=== PATIENT | female | born 1985 | race Caucasian/White ===

== ENCOUNTER 2018-05-01 09:54 | Emergency (ER) | payer OTHER ==
[~2018-05-01] VITALS: Ht 167.6 cm; Wt 52.2 kg
[~2018-05-01 09:54] MED LIST: ACETAMINOPHEN-1 EAC1 PO; BUTALB-APAP-CA1 EACH PO; CEPHALEXIN 500500 M3 PO; CIPROFLOXACIN500 M1 PO; CLEOCIN HCL150 MG PO; CLEOCIN HCL300 MG PO; CYCLOBENZAPRINE10 MG PO; FIORICET 50-321 EACH PO; IBUPROFEN 800800 M1 PO; NOHOMEMEDICATIONS; PROVERA5 MG PO; TRINATE TABLET1 TAB PO; ZITHROMAX TRI-500 MG PO; ZOFRAN4 MG PO
[2018-05-01 09:59] VITALS: BP 114/56
[2018-05-01] MEDS ORDERED: PENICILLIN VK500 MG PO (10:17)
== END 2018-05-01 10:23 | disposition home or self-care (01) ==
LOC: M.ERS 09:54
DX: K08.89 Other specified disorders of teeth and supporting structures (principal); F41.9 Anxiety disorder, unspecified; F17.210 Nicotine dependence, cigarettes, uncomplicated; Z88.0 Allergy status to penicillin; Z88.8 Allergy status to other drugs, medicaments and biological substances

== ENCOUNTER 2018-11-29 12:26 | Emergency (ER) | payer OTHER ==
[~2018-11-29] VITALS: Ht 170.2 cm; Wt 52.2 kg
[~2018-11-29 12:26] MED LIST changes: +PENICILLIN VK500 MG PO
[2018-11-29] MEDS ORDERED: CLONAZEPAM 0.50.5 M1 PO (12:59)
[2018-11-29] MEDS ORDERED: PENICILLIN VK500 MG PO (13:36)
[2018-11-29 13:46] VITALS: BP 121/70
== END 2018-11-29 13:47 | disposition home or self-care (01) ==
LOC: M.ERS 12:26
DX: K04.7 Periapical abscess without sinus (principal); F41.9 Anxiety disorder, unspecified; F17.210 Nicotine dependence, cigarettes, uncomplicated; Z88.8 Allergy status to other drugs, medicaments and biological substances

== ENCOUNTER 2019-06-08 13:16 | Emergency (ER) | payer OTHER ==
[~2019-06-08] VITALS: Ht 167.6 cm; Wt 49.9 kg
[~2019-06-08 13:16] MED LIST changes: +CLONAZEPAM 0.50.5 M1 PO
[2019-06-08 13:45] LABS: URINE BLOOD NEGATIVE (Negative); URINE CLARITY CLEAR; URINE COLOR YELLOW; URINE GLUCOSE-RANDOM NEGATIVE (Negative); URINE LEUKOCYTES-REFLEX NEGATIVE (Negative); URINE NITRITE-REFLEX NEGATIVE (Negative); URINE PROTEIN 2+ (Negative); URINE UROBILINOGEN 0.2 E.U./dl (0.2-1.0)
[2019-06-08 13:47] LABS: ICTOTEST (BILI CONFIRMATORY) Negative (Negative); URINE BILIRUBIN 1+ (Negative); URINE KETONES 3+ (Negative)
[2019-06-08 13:50] LABS: SQUAMOUS >10 Many /LPF (0-3)
[2019-06-08 13:51] LABS: HEMATOCRIT 40.1 % (37.0-47.0); HEMOGLOBIN 13.7 gm/dL (12.0-15.0); MCH 30.6 pg (26.0-34.0); MCHC 34.2 g/dL (28.0-37.0); MCV 89.6 fL (80.0-100.0); MPV 8.2 fl. (7.2-11.1); NUCLEATED RBCS 0 /100WBC; PLATELET COUNT* 137 thou/uL (150-400); RBC 4.48 mil/uL (4.20-5.00); RDW-CV 13.5 % (10.5-14.5); WBC 10.1 thou/uL (4.0-11.0)
[2019-06-08 13:52] LABS: AMP/METHAMP Negative (Negative); BACTERIA-REFLEX None Seen /HPF (None Seen); BARBITURATES Negative (Negative); BENZODIAZEPINES Negative (Negative); COCAINE Negative (Negative); METHADONE Negative (Negative); MUCUS >6 Heavy strn/LPF (None Seen); OPIATES Negative (Negative); PCP Negative (Negative); THC POSITIVE (Negative); URINE RBC None Seen /HPF (0-2); URINE WBC-REFLEX 0-5 Rare /HPF (0-5)
[2019-06-08 13:53] LABS: CASTS None Seen /LPF (None Seen); CRYSTALS None Seen /LPF (None Seen)
[2019-06-08 13:59] LABS: CREATININE 0.9 mg/dL (0.6-1.3); POTASSIUM 3.3 mmol/L (3.5-5.1)
[2019-06-08 14:03] LABS: ALBUMIN 3.6 g/dL (3.4-5.0); TOTAL PROTEIN 7.2 g/dL (6.4-8.2)
[2019-06-08 14:14] LABS: ABSOLUTE LYMPHOCYTES 0.3 thou/uL (0.8-5.3); ABSOLUTE MONOCYTES 0.4 thou/uL (0.0-1.2); ABSOLUTE NEUTROPHILS 9.4 thou/uL (1.6-8.1)
[2019-06-08 14:15] LABS: CLUMPED PLTS RARE; PLATELET ESTIMATE DECREASED
[2019-06-08 14:16] LABS: LARGE PLATELETS OCCASIONAL
[2019-06-08] MEDS ORDERED: PROMS25 WY RECTAL (15:55)
[2019-06-08] MEDS ORDERED: NAPROSYN500 MG PO (15:55)
[2019-06-08] MEDS ORDERED: PHENERGAN 25 MG25 M1 PO (15:55)
[2019-06-08] MEDS ORDERED: AUGMENTIN 875-1 EACH PO (15:55)
[2019-06-08 16:13] VITALS: BP 108/66
== END 2019-06-08 17:00 | disposition home or self-care (01) ==
LOC: M.ERS 13:16
PROVIDERS: Nurse Practitioner Family
DX: K52.9 Noninfective gastroenteritis and colitis, unspecified (principal); K31.89 Other diseases of stomach and duodenum; R11.2 Nausea with vomiting, unspecified; K04.7 Periapical abscess without sinus; F17.210 Nicotine dependence, cigarettes, uncomplicated; F12.10 Cannabis abuse, uncomplicated; J02.9 Acute pharyngitis, unspecified; D18.03 Hemangioma of intra-abdominal structures; F41.9 Anxiety disorder, unspecified; F32.9 Major depressive disorder, single episode, unspecified; Z88.8 Allergy status to other drugs, medicaments and biological substances

== ENCOUNTER 2019-06-08 23:45 | Inpatient (IN) | payer OTHER ==
[~2019-06-08] VITALS: Ht 167.6 cm; Wt 55.2 kg
[~2019-06-08 23:45] MED LIST changes: +AUGMENTIN 875-1 EACH PO; +NAPROSYN500 MG PO; +PHENERGAN 25 MG25 M1 PO; +PROMS25 WY RECTAL
[2019-06-08 23:53] VITALS: BP 115/65
[2019-06-09 00:25] LABS: HEMATOCRIT 35.4 % (37.0-47.0); HEMOGLOBIN 12.3 gm/dL (12.0-15.0); MCH 31.1 pg (26.0-34.0); MCHC 34.8 g/dL (28.0-37.0); MCV 89.5 fL (80.0-100.0); MPV 8.5 fl. (7.2-11.1); NUCLEATED RBCS 0 /100WBC; PLATELET COUNT* 111 thou/uL (150-400); RBC 3.96 mil/uL (4.20-5.00); RDW-CV 13.4 % (10.5-14.5)
[2019-06-09 00:32] LABS: CALCIUM 8.4 mg/dL (8.5-10.1)
[2019-06-09 00:37] LABS: ALBUMIN 3.1 g/dL (3.4-5.0); POTASSIUM 2.9 mmol/L (3.5-5.1); TOTAL BILIRUBIN 0.8 mg/dL (<0.1-1.0); TOTAL PROTEIN 6.2 g/dL (6.4-8.2)
[2019-06-09 00:58] LABS: ABSOLUTE BASOPHILS 0.1 thou/uL (0.0-0.2); ABSOLUTE MONOCYTES 0.2 thou/uL (0.0-1.2); ABSOLUTE NEUTROPHILS 6.7 thou/uL (1.6-8.1)
[2019-06-09 00:59] LABS: PLATELET ESTIMATE DECREASED
[2019-06-09 05:37] LABS: MAGNESIUM 2.6 mg/dL (1.8-2.4); POTASSIUM 4.4 mmol/L (3.5-5.1)
[2019-06-09 06:20] VITALS: BP 85/46
[2019-06-09 08:23] LABS: ABSOLUTE LYMPHOCYTES 0.5 thou/uL (0.8-5.3); ABSOLUTE MONOCYTES 0.7 thou/uL (0.0-1.2); ABSOLUTE NEUTROPHILS 6.1 thou/uL (1.6-8.1); BASOPHILS 0.1 %; EOSINOPHILS 0.1 %; HEMATOCRIT 29.3 % (37.0-47.0); MCH 31.3 pg (26.0-34.0); MCHC 34.4 g/dL (28.0-37.0); MONOCYTES 9.6 %; MPV 8.2 fl. (7.2-11.1); NUCLEATED RBCS 0 /100WBC; PLATELET COUNT* 96 thou/uL (150-400); POLYS 83.2 %; RBC 3.22 mil/uL (4.20-5.00); RDW-CV 13.3 % (10.5-14.5); WBC 7.3 thou/uL (4.0-11.0)
[2019-06-09 08:28] LABS: HEMOGLOBIN 10.1 gm/dL (12.0-15.0)
[2019-06-09 08:39] LABS: APTT 30.1 Seconds (25.0-31.3); INR 1.3; PROTIME 13.1 Seconds (9.20-11.50)
[2019-06-09 10:00] VITALS: BP 85/52
[2019-06-09 12:09] LABS: URINE BILIRUBIN NEGATIVE (Negative); URINE BLOOD NEGATIVE (Negative); URINE CLARITY CLEAR; URINE COLOR YELLOW; URINE GLUCOSE-RANDOM NEGATIVE (Negative); URINE KETONES NEGATIVE (Negative); URINE LEUKOCYTES-REFLEX NEGATIVE (Negative); URINE NITRITE-REFLEX NEGATIVE (Negative); URINE PROTEIN NEGATIVE (Negative); URINE UROBILINOGEN 0.2 E.U./dl (0.2-1.0)
[2019-06-09 14:00] VITALS: BP 105/67
[2019-06-09 18:11] VITALS: BP 98/64
[2019-06-09 20:00] VITALS: BP 118/74
[2019-06-09 21:20] VITALS: BP 102/68
[2019-06-10] VITALS: BP 104/64
[2019-06-10 04:00] VITALS: BP 95/54
[2019-06-10 08:00] VITALS: BP 97/65
[2019-06-10 12:00] VITALS: BP 111/61
[2019-06-10 20:00] VITALS: BP 110/61
[2019-06-11 05:00] LABS: HEMATOCRIT 29.7 % (37.0-47.0); HEMOGLOBIN 9.9 gm/dL (12.0-15.0); MCH 30.2 pg (26.0-34.0); MCHC 33.2 g/dL (28.0-37.0); MCV 91.1 fL (80.0-100.0); MPV 9.4 fl. (7.2-11.1); RBC 3.26 mil/uL (4.20-5.00); RDW-CV 13.9 % (10.5-14.5); WBC 3.6 thou/uL (4.0-11.0)
[2019-06-11 05:06] LABS: CALCIUM 8.2 mg/dL (8.5-10.1); CREATININE 0.8 mg/dL (0.6-1.3); MAGNESIUM 1.7 mg/dL (1.8-2.4); POTASSIUM 3.4 mmol/L (3.5-5.1)
[2019-06-11 08:00] VITALS: BP 106/75
[2019-06-11] MEDS ORDERED: CIPRO500 MG PO (08:34)
[2019-06-11] MEDS ORDERED: METRONIDAZOLE500 M4 PO (08:34)
[2019-06-11] MEDS ORDERED: LOPERAMIDE 2 MG2 M1 PO (08:34)
[2019-06-11 10:46] VITALS: BP 106/75
== END 2019-06-11 13:16 | disposition home or self-care (01) | DRG 872 ==
LOC: M.ERS 23:45 → M.2W 06-09 02:28 → M.TBA-ER 06-09 02:28 → M.2W 06-09 20:04
PROVIDERS: Emergency Medicine; Internal Medicine; ADMIT Internal Medicine
DX: A41.9 Sepsis, unspecified organism (principal); A04.9 Bacterial intestinal infection, unspecified; E44.1 Mild protein-calorie malnutrition; F41.9 Anxiety disorder, unspecified; F32.9 Major depressive disorder, single episode, unspecified; E87.6 Hypokalemia; E83.42 Hypomagnesemia; F17.210 Nicotine dependence, cigarettes, uncomplicated; A08.4 Viral intestinal infection, unspecified; F41.1 Generalized anxiety disorder; Z79.899 Other long term (current) drug therapy; Z68.1 Body mass index [BMI] 19.9 or less, adult; Z88.8 Allergy status to other drugs, medicaments and biological substances